=== PATIENT | female | born 1995 | race Caucasian/White ===

== ENCOUNTER 2017-04-15 19:58 | Emergency (ER) | payer OTHER ==
[~2017-04-15] VITALS: Ht 165.1 cm; Wt 70.5 kg
[~2017-04-15 19:58] MED LIST: ACET500C5 PO; CEPH-443 PO; DOCU-144 PO; POLY17PO6 PO
[2017-04-15 20:29] VITALS: Ht 165.1 cm; Wt 70.5 kg
[2017-04-15] MEDS ORDERED: HC1C30 TOP (22:02)
[2017-04-15] MEDS ORDERED: CEPH-443 PO (22:02)
[2017-04-15] MEDS ORDERED: BEN25 PO (22:02)
[2017-04-15] MEDS ORDERED: PRED20TA PO (22:02)
--- NOTE | 2017-04-15 22:12 | ERD ---
ER Documentation Chief Complaint Date/Time DATE: 04/15/17 TIME: 22:08 Chief Complaint bee sting yesterday to right upper arm HPI Patient is a 21-year-old female who presents to the ED with a bee sting to her right arm yesterday. She states that it is itchy and slightly painful. She denies fever or chills. She denies any other symptoms. Patient is up-to-date with her immunizations. Denies vomiting or diarrhea. Denies abdominal pain. Denies chest pain or cough or shortness of breath. Denies headache or dizziness. No other complaints. ROS All systems reviewed and are negative except as per history of present illness. Medications Home Meds Active Scripts Hydrocortisone* Topical (Hydrocortisone* Topical) 1%-28.35 Gm Cream..g., 1 APPLIC TOP Q6 Y for ITCHING, #1 TUB Prov:ESTEFANI GONZALEZ PA-C 04/15/17 Cephalexin* (Keflex*) 500 Mg Capsule, 500 MG PO QID for 7 Days, CAP Prov:ESTEFANI GONZALEZ PA-C 04/15/17 Diphenhydramine Hcl* (Benadryl*) 25 Mg Cap, 25 MG PO Q6, #30 CAP Prov:ESTEFANI GONZALEZ PA-C 04/15/17 Prednisone* (Prednisone*) 20 Mg Tab, 40 MG PO DAILY for 4 Days, TAB Prov:ESTEFANI GONZALEZ PA-C 04/15/17 Docusate Sodium* (Colace*) 100 Mg Capsule, 100 MG PO TID, #30 CAP Prov:PAULINA DYER PA-C 06/27/16 Polyethylene Glycol* (Miralax*) 17 Gm Powd.pack, 17 GM PO DAILY, #7 Prov:PAULINA DYER PA-C 06/27/16 Cephalexin* (Keflex*) 500 Mg Capsule, 500 MG PO QID for 7 Days, CAP Prov:PAULINA DYER PA-C 06/27/16 Acetaminophen* (Tylophen*) 500 Mg Capsule, 1 CAP PO Q6H for HEADACHE, #20 CAP Prov:ZACKARY VAUGHAN PA-C 02/02/16 Allergies Allergies: Coded Allergies: No Known Allergy (Unverified , 02/19/15) PMhx/Soc History of Surgery: Yes (VAGINAL SURGERY, (VAGINAL TEAR REPAIR)) Anesthesia Reaction: No Hx Neurological Disorder: No Hx Respiratory Disorders: No Hx Cardiac Disorders: No Hx Psychiatric Problems: No Hx Miscellaneous Medical Probl: Yes (constipation) Hx Alcohol Use: No Hx Substance Use: No Hx Tobacco Use: No Smoking Status: Never smoker Physical Exam Vitals Vital Signs Date Time Temp Pulse Resp B/P Pulse Ox O2 Delivery O2 Flow Rate FiO2 04/15/17 20:29 98.8 66 18 140/73 99 Physical Exam GENERAL: Well-developed, well-nourished female. Appears in no acute distress. HEAD: Normocephalic, atraumatic. EYES: Pupils are equally reactive bilaterally. EOMs grossly intact. No conjunctival erythema. ENT: Moist mucous membranes. No uvula deviation. No kissing tonsils. No exudates. No tongue or lip swelling. NECK: Supple. No lymphadenopathy or thyromegaly. No meningismus. negative kernig. negative brudinski. LUNG: Clear to auscultation bilaterally. No rhonchi, wheezing, rales or coarse breath sounds. HEART: Regular rate and rhythm. No murmurs, rubs or gallops. Extremities: Equal pulses bilaterally. No peripheral clubbing, cyanosis or edema. No unilateral leg swelling. Right elbow has bug bite, swollen and erythematous. No streaking. NEUROLOGIC: Alert and oriented. Moving all four extremities. 5/5 strength in all extremities. Normal speech. Steady gait. SKIN: Normal color. Warm and dry. No rashes or lesions. Capillary refill < 2 seconds Procedures/MDM ER COURSE: I kept the patient and/or family informed of laboratory and diagnostic imaging results throughout the emergency room course. MEDICAL DECISION MAKING: This is a 21-year-old female who presents with bee sting 1 day. Vital signs were reviewed. Patient is afebrile. Patient is not hypoxic. Patient is nontoxic or ill-appearing. Patient has a localized bee sting, with localized cellulitis. Patient does not show signs of angioedema. No tongue or lip swelling and does not show signs of respiratory distress. Low suspicion for necrotizing fasciitis, SJS, toxic epidermal necrolysis, Kawasaki, erythema multiforme, gangrene, scarlet fever, meningococcemia, sepsis, anaphylaxis, sepsis, deep space infection, or foreign body. DISCHARGE: At this time, patient is stable for discharge and outpatient management with no new complaints during the ER course. Patient was sent home with prednisone, Keflex, Benadryl and hydrocortisone. Patient will be discharged home with instructions to recheck for new or worsening symptoms such as fever, nausea, weakness, LOC and to follow up with primary care in the next 1-2 days. Patient was advised to return to the ER for any new or worsening symptoms. Plan was discussed and patient and/or family understands and agrees. Home instructions were given. Departure Diagnosis: Primary Impression: Bee sting Encounter type: initial encounter Injury intent: accidental or unintentional Qualified Code: T63.441A - Bee sting, accidental or unintentional, initial encounter Condition: Stable Patient Instructions: Insect Bites and Stings Referrals: CESIA GARCES (PCP) Additional Instructions: Call your primary care doctor TOMORROW for an appointment during the next 1-2 days.See the doctor sooner or return here if your condition worsens before your appointment time. ESTEFANI GONZALEZ PA-C Apr 15, 2017 22:12
== END 2017-04-15 22:17 | disposition home or self-care (01) ==
LOC: FTE 19:58
DX: T63.441A Toxic effect of venom of bees, accidental (unintentional), initial encounter (principal)
CPT/HCPCS: 99284